=== PATIENT | female | born 1940 | race Caucasian/White ===

== ENCOUNTER 2025-04-21 17:43 | Inpatient (IN) ==
[2025-04-21 18:21] LABS: BASOPHILS % (AUTO) 0.2 %; HCT - HEMATOCRIT 31.7 % (37.0-47.0); HGB - HEMOGLOBIN 10.4 g/dL (12.0-16.0); LYMPHOCYTES # (AUTO) 0.8 10^3/uL (1.5-3.5); LYMPHOCYTES % (AUTO) 6.3 %; MEAN CORPUSCULAR HEMOGLOBIN 27.9 pg (27.0-31.0); MEAN CORPUSCULAR HGB CONC 32.8 g/dL (32.0-36.0); MEAN PLATELET VOLUME 8.4 fL (7.9-10.8); MONOCYTES # (AUTO) 0.5 10^3/uL (0.0-1.0); MONOCYTES % (AUTO) 3.8 %; NEUTROPHILS # (AUTO) 11.6 10^3/uL (1.5-6.6); NEUTROPHILS % (AUTO) 89.2 %; PLT - PLATELET COUNT 314 10^3/uL (130-450); RED BLOOD COUNT 3.73 10^6/uL (4.20-5.40); WHITE BLOOD COUNT 12.9 x10^3/uL (4.8-10.8)
[2025-04-21 18:34] LABS: ALBUMIN 3.9 g/dL (3.2-5.5); ALBUMIN/GLOBULIN RATIO 1.3 (1.0-2.2); ALKALINE PHOSPHATASE 94 IU/L (42-121); ALT ALANINE AMINOTRANSFERASE 17 IU/L (10-60); AST ASPARTATE AMINOTRANSFERASE 21 IU/L (10-42); BILIRUBIN,TOTAL 0.6 mg/dL (0.2-1.0); BUN - BLOOD UREA NITROGEN 21 mg/dL (6-20); CALCIUM 9.8 mg/dL (8.5-10.3); CARBON DIOXIDE - CO2 27 mmol/L (21-32); CHLORIDE 100 mmol/L (101-111); CK- CREATINE KINASE 357 IU/L (30-223); CREATININE 0.4 mg/dL (0.6-1.3); GFR - MDRD 152 (>89); GLUCOSE 148 mg/dL (74-104); SODIUM 137 mmol/L (135-145); TOTAL PROTEIN 6.9 g/dL (6.4-8.9)
[2025-04-21 18:35] LABS: LIPASE < 10 U/L (11-82)
--- NOTE | 2025-04-21 18:36 | ED Physician Documentation ---
History of Present Illness Stated complaint Stated Complaint: FALL/POSS UTI Chief complaint Chief Complaint: General History obtained from History obtained from: Patient Additonal information Additional information: 84-year-old female presents after a neighbor reportedly found her on the floor. The patient lives alone, and is not sure necessarily how she ended up on the floor. Is not clear whether this happened today or yesterday According to patient's daughter who lives in [place], the patient had a heating/cooling hearing aid repair technician at that house yesterday until around 3:30 in the afternoon and presumeably she was ok at that time. This morning when she called her mom multiple times, she did not answer, she subsequently called a neighbor who looked in the window and found the patient was on the floor but was unable to get inside the house so called 911. EMS found the patient on the floor, she had not soiled herself and they presumed that she had not been on the floor for that long, she is awake and alert but unable to get up on her own. Patient is not sure if she fell yesterday or today. The patient tells me that she feels a generally well, she denies any specific concerns other than some tenderness in the sacrum. She has had difficulty with mobility for a few months, particularly with raising her hands overhead or pulling herself up or getting up from a seated position. She has not been feeling unwell the last few days to her knowledge, has not had a fever to her knowledge, Denies any cough or URI type symptoms, no chest pain or difficulty breathing, no abdominal pain, no nausea vomiting diarrhea. She has not been on any new medication other than gabapentin which was started a couple months ago, and she was on prednisone for a period of time to help with her joint pain which did help her mobility quite a bit but she has titrated off that. She has also been followed by her primary doctor recently for anemia of unknown origin. Iva Coma Scale Assess Eye opening: Spontaneous Verbal response: Oriented Motor response: Obeys Commands Total score: 15 Meds/Allgy Home Medications Ambulatory Orders Medication Instructions Recorded Confirmed no.118-ferrous fumarate 1 tab PO DAILY #30 ta bs 03/02/25 03/29/25 29 mg-folic acid 1 mg chewable tablet cholecalciferol (vitamin D3) 25 25 mcg PO QDAY 5 05/05/25 mcg (1,000 unit) tablet cyanocobalamin (vitamin B-12) 250 250 mcg PO QDAY 08/1903/29/25 mcg tablet (Vitamin B-12) acetaminophen 500 mg capsule 500 mg PO QID PRN pain 03/29/25 gabapentin 100 mg capsule 100 mg PO QDAY #90 caps 02/2303/29/25 fzgcaste-bsnh-dhuo 8 mg-folic 400 1 tab PO QDAY 03/29/25 mcg-K 50 mcg-lutein 300 mcg tablet (Centrum Silver Women) dexamethasone 4 mg tablet 4 mg PO DAILY joint pain and 03/29/25 03/29/25 stiffness #10 tabs Allergies Allergies Allergy/AdvReac Type Severity Reaction Status Date / Time SEASONAL ALLERGIES Allergy Severe Unknown Uncoded 04/21/25 17:56 PFSH Active Problems All Active Problems (Updated 04/21/25 @ 22:02 by Rizwana Flores [facility]) Acute metabolic encephalopathy (Acute) Acute cystitis (Acute) Episode of altered cognition (Acute) Encounter to establish care with new provider (Acute) Iron deficiency anemia, unspecified (Acute) Counseling, unspecified (Acute) Other usp (current) drug therapy (Acute) Encounter for vaccination (Acute) Impacted cerumen, bilateral (Acute) Elevated erythrocyte sedimentation rate (Acute) Diffuse arthralgia (Acute) Severe anemia (Acute) Iron deficiency anemia (Acute) Anemia (Acute) Chest pain (Acute) Lives alone (Acute) Muscle weakness (Acute) Left hip pain (Acute) Abnormal weight loss (Acute) Cervical radicular pain (Acute) Left shoulder pain (Acute) Mobility impaired (Acute) Fatigue (Acute) Social History Social History Smoking Status: Never smoker Second hand tobacco smoke exposure: Yes Do you dip or chew tobacco?: No Do you vape?: No Living arrangement: At home Marital Status: Living Condition: Alone Relationship: Level: Independent Do you feel safe in your home environment?: Yes Suffered physical, verbal, emotional, or financial abuse?: No ETOH Use: None Substance Use: denies use POLST Patient has POLST: No Exam Exam Vital Signs: Vital Signs x48h Temp Pulse Resp BP Pulse Ox 04/21/25 21:00 94 140/65 H 95 04/21/25 19:56 36.8 C 88 16 150/90 H 97 04/21/25 17:48 36.7 C 90 20 156/69 H 96 Constitutional normal general appearance, no apparent distress, average body habitus, no limitations and alert HENMT normocephalic and head/scalp atraumatic Eyes PERRL and EOMs intact bilaterally Respiratory breath sounds equal bilaterally, normal respiratory effort, clear to auscultat ion bilaterally, no wheezes, no rales, no retractions and no use of accessory muscles Cardiovascular normal heart rate noted, regular rhythm noted, no murmur, peripheral pulses 2+ throughout and no edema Gastrointestinal abdomen normal to inspection, abdomen soft to palpation, nontender to palpation, nondistended and normoactive bowel sounds Extremities normal to inspection No obvious extremity bony injuries. She has reduced range of motion of both upper extremities that is chronic, arthritic changes to both hands,. Patient not able to get out of bed to chair, mobility. Neurology Awake and alert, oriented, speech is clear, moves all extremities, no focal sensory or motor deficits though has generalized weakness and chronic arthralgias of particular shoulders but also hip joint. Unable to assess gait due to to patient's limited mobility. Skin skin color normal and no wounds Redness on the sacrum Results Vitals Vitals: Vital Signs - 24 hr 04/21/25 17:48 04/21/25 19:56 04/21/25 21:00 Temperature 36.7 C 36.8 C Temperature Source Temporal Artery Scan Tympanic Pulse Rate 90 88 94 Respiratory Rate 20 16 Blood Pressure 156/69 H 150/90 H 140/65 H O2 Saturation 96 97 95 O2 Source Room air Room air Room air Pain Intensity 0 0 Oxygen O2 Source Room air Labs Labs: Laboratory Tests 04/21/25 04/21/25 04/21/25 18:15 19:45 21:26 WBC 12.9 H RBC 3.73 L Hgb 10.4 L Hct 31.7 L MCV 85.0 MCH 27.9 MCHC 32.8 RDW 20.0 H Plt Count 314 MPV 8.4 Neut # (Auto) 11.6 H Lymph # (Auto) 0.8 L [place] # (Auto) 0.5 Eos # (Auto) 0.0 Baso # (Auto) 0.0 Absolute Nucleated RBC 0.00 Nucleated RBC % 0.0 Sodium 137 Potassium 4.0 Chloride 100 L Carbon Dioxide 27 Anion Gap 10.0 BUN 21 H Creatinine 0.4 L Estimated GFR (MDRD) 152 Glucose 148 H Lactic Acid < 0.2 L Calcium 9.8 Total Bilirubin 0.6 AST 21 ALT 17 Alkaline Phosphatase 94 Total Creatine Kinase 357 H Total Protein 6.9 Albumin 3.9 Globulin 3.0 Albumin/Globulin Ratio 1.3 Lipase < 10 L Procalcitonin Immunoas 0.08 Urine Color YELLOW Urine Clarity SL. CLOUDY Urine pH 6.0 Ur Specific [place] >=1.030 H Urine Protein 100 H Urine Glucose (UA) NEGATIVE Urine Ketones >=80 H Urine Occult Blood TRACE-INTA Urine Nitrite NEGATIVE Urine Bilirubin NEGATIVE Urine Urobilinogen 0.2 (NORMAL) Ur Leukocyte Esterase SMALL H Urine RBC None Seen Urine WBC >25 H Urine WBC Clumps PRESENT Ur Squamous Epith Cells MANY Squamous H Urine Bacteria Few Ur Microscopic Review INDICATED Urine Culture Comments NOT INDICATED Urine Opiates Screen POSITIVE H Ur Buprenorphine Scrn NEGATIVE Ur Oxycodone Screen NEGATIVE Urine Methadone Screen NEGATIVE Ur Barbiturates Screen NEGATIVE Ur Tricyclics Screen NEGATIVE Ur Phencyclidine Scrn NEGATIVE Ur Amphetamine Screen NEGATIVE U Methamphetamines Scrn NEGATIVE U Benzodiazepines Scrn NEGATIVE Urine Cocaine Screen NEGATIVE U Cannabinoids Screen NEGATIVE Ur Drug Screen Comment CUTOFF CONC BELOW: Ethyl Alcohol < 10.0 Rads (name of study) CT head, CT abd/p: Relevant Findings:: Final report received PD Medical Decision Making ED course Complexity details: reviewed old records, reviewed results, re-evaluated patient, considered differential, d/w patient and d/w family ED course: This is a 84-year-old female who presents after being found down on the floor of her house today. She has no specific complaints other than decreased mobility and joint pain that has been going on for quite some time. Here, the patient is awake and alert, oriented though appears mildly confused. There are no focal bony injuries, and no focal neurodeficits other than mild confusion. There is concern for possible infection, dehydration, electrolyte abnormality, toxic encephalopathy, metabolic encephalopathy, stroke among other differentials. We obtained a head CT which is negative, CT abdomen pelvis noncontrast was also negative for acute findings. Labs notable fo for mild leukocytosis, stable anemia, stable renal function, mild elevation in CK, urinalysis suspicious of for possible infection. Patient was given a liter of fluid and 1 g of ceftriaxone. We then attempted to do a road test on the patient and she was not able to safely get out of bed or mobilize on her own or even with significant assistance. We therefore have recommended admission for this patient to treat UTI, and encephalopathy with poor mobility. Awaiting tele-hospitalist to return call. 2200: Talked w/ hospitalist Dr. Maguire who very kindly has accepted this patient to the hospitalist service. Discharge Plan Discharge Patient Disposition: [facility] DC/Xfer Condition: Good Clinical Impression: Mobility impaired, Acute metabolic encephalopathy Acute cystitis Qualifiers: Hematuria presence: without hematuria Qualified Code(s): N30.00 - Acute cys titis without hematuria Prescriptions: No Action cyanocobalamin (vitamin B-12) [Vitamin B-12] 250 mcg tablet 250 mcg PO QDAY cholecalciferol (vitamin D3) 25 mcg (1,000 unit) tablet 25 mcg PO QDAY [id number] acid 29 mg iron- 1 mg tablet,chewable 1 tab PO DAILY Qty: 30 1RF acetaminophen 500 mg capsule 500 mg PO QID PRN (Reason: pain) Centrum Silver Women 8 mg iron-400 mcg-50 mcg tablet 1 tab PO QDAY gabapentin 100 mg capsule 100 mg PO QDAY Qty: 90 2RF dexamethasone 4 mg tablet 4 mg PO DAILY Qty: 10 0RF Print Language: Ecuadorean
--- NOTE | 2025-04-21 19:12 | CT Report ---
PROCEDURE: CT Head WO INDICATIONS: found on floor TECHNIQUE: Noncontrast 4.5 mm thick angled axial sections acquired from the foramen magnum to the vertex. For radiation dose reduction, the following was used: automated exposure control, adjustment of mA and/or kV according to patient size. COMPARISON: None FINDINGS: Image quality: Excellent. CSF spaces: Basal cisterns are patent. No extra-axial fluid collections. The ventricles are symmetric in size and shape. Brain: No intracranial bleeds or masses. There is cerebral volume loss for age, with resultant ventricular and sulcal prominence. There are periventricular and deep white matter chronic small vessel ischemic changes. There is intracranial internal carotid artery atherosclerosis. Skull and face: Calvarium and visualized facial bones appear intact, without suspicious lesions. Sinuses: Visualized sinuses and mastoids are clear. IMPRESSION: 1. No acute intracranial pathology. 2. Age-related volume loss. Reviewed by: Tae Sloan MD on 04/21/2025 7:10 PM PDT Approved by: Tae Sloan MD on 04/21/2025 7:10 PM PDT Station ID: [id number]
--- NOTE | 2025-04-21 19:14 | CT Report ---
PROCEDURE: CT Abdomen/Pelvis WO INDICATIONS: fall, found on ground, sacral pain TECHNIQUE: A CT scan of the abdomen and pelvis was performed without the use of intravenous contrast. Images were recorded and evaluated at appropriate window settings. Reformats: coronal and sagittal. For radiation dose reduction, the following was used: automated exposure control, adjustment of mA and/or kV according to patient size. COMPARISON: None. FINDINGS: Image quality: Diagnostic. Lower chest: Dependent atelectasis in posterior aspect of bilateral lung bases are seen. Moderate to large hiatal hernia. Heart size is normal, no pericardial effusion.. Liver: No contour-deforming mass. Gallbladder: No radiopaque stones or wall thickening. Biliary tree: No intrahepatic or extrahepatic dilation, accounting for age. Spleen: No splenomegaly. Pancreas: No pancreatic ductal dilation. Adrenals: No adrenal nodule. Kidneys and ureters: No hydronephrosis. No contour-deforming mass. Stomach, bowel and peritoneum: No gastric or small bowel dilation. No abnormal wall thickening. No pathologic free fluid. Normal appendix. No peritoneal free air. No abscess collection. Lymph nodes: No central or retroperitoneal adenopathy. Vessels: No infrarenal aortic aneurysm. Reproductive organs: Unremarkable. Bladder: Urinary bladder is well distended. No bladder wall thickening.. No calcified bladder stones. Pelvic lymph nodes: No adenopathy by size criteria. Bones: No aggressive osseous abnormality. No acute pelvic fracture or dislocation. Pelvic ring is intact. Osteoarthritic changes throughout bony pelvis is seen. Other: No significant ventral or inguinal hernia. IMPRESSION: 1. No evidence of acute trauma in the abdomen or pelvis. 2. Osteoarthritic changes throughout bony pelvis. No acute pelvic fracture or dislocation. No acute vertebral body compression fracture. 3. Normal appendix. No obstruction abnormal bowel wall thickening. No free fluid or free air. 4. Moderate to large size hiatal hernia. Reviewed by: Tae Sloan MD on 04/21/2025 7:13 PM PDT Approved by: Tae Sloan MD on 04/21/2025 7:13 PM PDT Station ID: [id number]
[2025-04-21] MEDS: SODIUM CHLORIDE 0.9% 1,000 ML IV STA (19:38)
[2025-04-21 19:52] LABS: BILIRUBIN,URINE NEGATIVE (NEGATIVE); GLUCOSE, URINE (UA) NEGATIVE (NEGATIVE); KETONES,URINE (UA) >=80 mg/dL (NEGATIVE); LEUKOCYTE ESTERASE, URINE SMALL (NEGATIVE); NITRITE,URINE NEGATIVE (NEGATIVE); OCCULT BLOOD,URINE TRACE-INTA (NEGATIVE); PROTEIN,URINE 100 mg/dL (NEGATIVE); UROBILINOGEN,URINE 0.2 (NORMAL) E.U./dL (NORMAL)
[2025-04-21 19:53] LABS: CLARITY,URINE SL. CLOUDY (CLEAR)
[2025-04-21] MEDS ORDERED: cefTRIAXone 1 GM VIAL ONE (20:05)
[2025-04-21 20:06] LABS: BACTERIA,URINE Few /HPF (None Seen); RBC,URINE None Seen /HPF (0-5); SQUAMOUS EPITHELIAL CELL,UR MANY Squamous (<= Few); WBC CLUMPS,URINE PRESENT; WBC,URINE >25 /HPF (0-5)
[2025-04-21] MEDS: cefTRIAXone 1 GM in SODIUM CHLORIDE 0.9% MINIBAG 100 ML IV STA (20:10)
[2025-04-21 21:37] LABS: AMPHETAMINE SCREEN,URINE NEGATIVE (NEGATIVE); BARBITURATE SCREEN,UR NEGATIVE (NEGATIVE); BENZODIAZEPINES SCREEN, URINE NEGATIVE (NEGATIVE); BUPRENORPHINE SCREEN, URINE NEGATIVE (NEGATIVE); COCAINE SCREEN URINE NEGATIVE (NEGATIVE); METHADONE SCREEN, URINE NEGATIVE (NEGATIVE); METHAMPHETAMINES SCREEN, URINE NEGATIVE (NEGATIVE); OPIATE SCREEN, URINE POSITIVE (NEGATIVE); OXYCODONE SCREEN, URINE NEGATIVE (NEGATIVE); THC CANNABINOID SCREEN, URINE NEGATIVE (NEGATIVE); TRICYCLIC ANTIDEPRESSANT,URINE NEGATIVE (NEGATIVE)
--- NOTE | 2025-04-21 22:17 | HISTORY & PHYSICAL EXAMINATION ---
Chief Complaint Chief Complaint Chief Complaint: Fall and confusion History of Present Illness Admitted From Admitted From:: Home via EMS History Obtained From Records Reviewed: yes History obtained from: ED physician and records Exam Limitations: telemedicine, patient confusion History of Present Illness HPI Comment/Other: Mrs. Maria is an 84 yoF that presented from home for evaluation after being found down by her neighbor. patient lives alone and was last seen by an electrical technician instructor. Her daughter tried to contact her the day of presentation but was unable to reach her. neighbor saw her on the floor but was unable to get into the house, patient was unable to get up but was awake. EMS reported she was alert and followed commands but was unable to provide history. She did not have any evidence of trauma. She didn't have any focal neurologic deficits. UA was concerning for acute infection. She had elevated CK >300. Patient remained unstable on her feet and due living alone hospitalist was aske to admit for further monitoring. I performed this visit using real-time tele-health tools. Informed consent was obtained to complete this tele-health visit with the available modalities. At the time of this visit, patient was located at [facility] in the [facility], I was located in [place]. Review of Systems Status of ROS: 10 or more systems reviewed and unremarkable except as noted in history and below PFSH Active Problems All Active Problems (Updated 04/21/25 @ 22:02 by Rizwana Flores [facility]) Acute metabolic encephalopathy (Acute) Acute cystitis (Acute) Episode of altered cognition (Acute) Encounter to establish care with new provider (Acute) Iron deficiency anemia, unspecified (Acute) Counseling, unspecified (Acute) Other terminal gauger (current) drug therapy (Acute) Encounter for vaccination (Acute) Impacted cerumen, bilateral (Acute) Elevated erythrocyte sedimentation rate (Acute) Diffuse arthralgia (Acute) Severe anemia (Acute) Iron deficiency anemia (Acute) Anemia (Acute) Chest pain (Acute) Lives alone (Acute) Muscle weakness (Acute) Left hip pain (Acute) Abnormal weight loss (Acute) Cervical radicular pain (Acute) Left shoulder pain (Acute) Mobility impaired (Acute) Fatigue (Acute) Social History Social History Smoking Status: Never smoker Second hand tobacco smoke exposure: Yes Do you dip or chew tobacco?: No Do you vape?: No Living arrangement: At home Marital Status: Living Condition: Alone Relationship: Level: Independent Do you feel safe in your home environment?: Yes Suffered physical, verbal, emotional, or financial abuse?: No ETOH Use: None Substance Use: denies use POLST Patient has POLST: No Meds/Allgy Home Medications Ambulatory Orders Medication Instructions Recorded Confirmed no.118-ferrous fumarate 1 tab PO DAILY #30 ta bs 03/02/25 03/29/25 29 mg-folic acid 1 mg chewable tablet cholecalciferol (vitamin D3) 25 25 mcg PO QDAY 03/29/25 mcg (1,000 unit) tablet cyanocobalamin (vitamin B-12) 250 250 mcg PO QDAY 08/1903/29/25 mcg tablet (Vitamin B-12) acetaminophen 500 mg capsule 500 mg PO QID PRN pain 03/29/25 gabapentin 100 mg capsule 100 mg PO QDAY #90 caps 02/2303/29/25 qkesayon-ehau-qzpd 8 mg-folic 400 1 tab PO QDAY 03/29/25 mcg-K 50 mcg-lutein 300 mcg tablet (Centrum Silver Women) dexamethasone 4 mg tablet 4 mg PO DAILY joint pain and 03/29/25 03/29/25 stiffness #10 tabs Allergies Allergies Allergy/AdvReac Type Severity Reaction Status Date / Time SEASONAL ALLERGIES Allergy Severe Unknown Uncoded 04/21/25 17:56 Exam Exam Vital Signs: Vital Signs x48h Temp Pulse Resp BP Pulse Ox 04/21/25 21:00 94 140/65 H 95 04/21/25 19:56 36.8 C 88 16 150/90 H 97 04/21/25 17:48 36.7 C 90 20 156/69 H 96 Examination as recorded was obtained from reported information from patient and staff on site, or through peripheral observation Constitutional no apparent distress Eyes PERRL Cardiovascular normal heart rate noted Genitourinary no CVA tenderness Extremities normal to inspection and full ROM Neurology no focal motor deficit noted Psychiatry oriented x3 (confusion) and cooperative Conclusion/Plan Problem List (1) Acute metabolic encephalopathy: Plan: alert but mild confusion, no focal deficits - I reviewed CT head myself, no acute intracranial finding -UA positive for opiates and patient recently started gabapentin, will hold medication due to altered mental status -suspected underlying infection may be contributing -continue to monitor for improvement (2) Acute cystitis: Plan: UA concerning for acute infection, cultures pending -continue empiric antibotics with rocephin tailor base on culture results Qualifiers: Hematuria presence: without hematuria Qualified Code(s): N30.00 - Acute cystitis without hematuria (3) Mobility impaired: Plan: acute on chronic, progressing. undergoing workup outpatient, now with fall and inability to get up -elevated cK level noted -CT abdomen pelvis reviewed myself,no fractures noted -physical therapy consultation pending, case management consulted to assist with disposition (4) Iron deficiency anemia, unspecified: Plan: home medications reviewed -resume iron supplementation Qualifiers: Iron deficiency anemia type: unspecified iron deficiency Qualified Code(s): D50.9 - Iron deficiency anemia, unspecified Lab Results 04/21/25 18:15 04/21/25 18:15 Core Measures Anticipated LOS I expect patient to be DC'd or transferred within 96 hours.: Yes Telemedicine Consult Details Provider Location & Consult Time Telemedicine consultation conducted via videoconferencing?: Yes
[2025-04-21] MEDS ORDERED: ONDANSETRON ODT 4 MG TABLET TL PRN (22:44)
[2025-04-21] MEDS ORDERED: SODIUM CHLORIDE FLUSH 0.9% 10 ML SYRINGE IVP PRN (22:44)
[2025-04-21] MEDS: SODIUM CHLORIDE 0.9% 1,000 ML IV SCH (23:03)
[2025-04-22] MEDS: SODIUM CHLORIDE FLUSH 0.9% 10 ML SYRINGE IVP SCH (00:02)
[2025-04-22] MEDS: cefTRIAXone 1 GM VIAL IVP STA (00:02)
[2025-04-22] MEDS: ACETAMINOPHEN 325 MG TABLET PO PRN (00:17)
[2025-04-22 05:44] LABS: BASOPHILS % (AUTO) 0.4 %; EOSINOPHILS # (AUTO) 0.1 10^3/uL (0.0-0.7); EOSINOPHILS % (AUTO) 1.1 %; HGB - HEMOGLOBIN 8.8 g/dL (12.0-16.0); LYMPHOCYTES % (AUTO) 19.8 %; MEAN CORPUSCULAR HEMOGLOBIN 27.5 pg (27.0-31.0); MEAN CORPUSCULAR HGB CONC 31.4 g/dL (32.0-36.0); MEAN CORPUSCULAR VOLUME 87.5 fL (81.0-99.0); MONOCYTES # (AUTO) 0.6 10^3/uL (0.0-1.0); MONOCYTES % (AUTO) 5.5 %; NEUTROPHILS # (AUTO) 7.4 10^3/uL (1.5-6.6); NEUTROPHILS % (AUTO) 72.8 %; PLT - PLATELET COUNT 293 10^3/uL (130-450); RED CELL DISTRIBUTION WIDTH 20.4 % (12.0-15.0); WHITE BLOOD COUNT 10.2 x10^3/uL (4.8-10.8)
[2025-04-22 05:56] LABS: CALCIUM 8.6 mg/dL (8.5-10.3); CREATININE 0.4 mg/dL (0.6-1.3); POTASSIUM 3.5 mmol/L (3.5-4.5)
[2025-04-22] MEDS: PRENATAL VITAMIN TABLET PO SCH (08:35)
[2025-04-22] MEDS: dexAMETHasone 4 MG TABLET PO SCH (08:35)
--- NOTE | 2025-04-22 12:20 | PHARMACY PROGRESS NOTE ---
Best Possible Medication History Admit Date and Time: 04/21/252203 Home Medications Medication Instructions Recorded Confirmed Type no.118-ferrous fumarate 1 tab PO DAILY #30 ta bs 03/02/25 04/22/25 Rx 29 mg-folic acid 1 mg chewable tablet cholecalciferol (vitamin D3) 25 25 mcg PO DAILY 04/22/25 History mcg (1,000 unit) tablet cyanocobalamin (vitamin B-12) 250 250 mcg PO DAILY 08/1904/22/25 History mcg tablet (Vitamin B-12) acetaminophen 500 mg capsule 500 mg PO QID PRN pain 04/22/25 History zxgnckdx-szlc-ecqg 8 mg-folic 400 1 tab PO DAILY 03/0904/22/25 History mcg-K 50 mcg-lutein 300 mcg tablet (Centrum Silver Women) gabapentin 100 mg capsule 100 mg PO DAILY 04/22/25 History magnesium 200 mg tablet 200 mg PO DAILY 04/22/25 History Processed by: Pharmacy (Medication reconciliation completed by [employer]) Medications reviewed in ED?: No Medication History completed: Yes Patient Interview: Completed Secondary Source(s): Insurance records [facility] Statement: As the person ultimately responsible for medication therapy, providers are able to order a medication from an existing home medication list in [facility] via the "Reconcile Routine" prior to Confirmation of that medication by computer network support specialist. Such practice is discouraged except when the physician, in their clinical judgment, deems that a medical need exists for a medication without regard to previous use.
--- NOTE | 2025-04-22 13:18 | PROVIDER PROGRESS NOTE ---
Subjective Prog Note Date Prog Note Date: 04/22/25 Subjective Pt reports feeling: No change Current Medications Current Medications Current Medications: Current Medications Generic Name Dose Route Start Last Admin Trade Name Home PRN Reason Stop Dose Admin Acetaminophen 650 mg 04/21/25 22:44 04/22/25 08:35 Acetaminophen 325 Mg Tablet PO 650 mg Q4HR PRN Administration Pain 1 to 4, or Fever Ceftriaxone Sodium 1 gm 04/22/25 21:00 Ceftriaxone 1 Gm Vial IVP HS ARISTEO Dexamethasone 4 mg 04/22/25 09:00 04/22/25 08:35 Dexamethasone 4 Mg Tablet PO 4 mg DAILY ARISTEO Administration Sodium Chloride 1,000 mls @ 100 mls/hr 04/21/25 23:00 04/22/25 10:40 Normal Saline 0.9% IV 100 mls/hr .Q10H ARISTEO Administration Ondansetron HCl 4 mg 04/21/25 22:44 Ondansetron Odt 4 Mg Tablet TL Q6HR PRN Nausea / Vomiting Multivit/Folic Acid/Iron 1 tab 04/22/25 08:00 04/22/25 08:35 Vitamin Tablet PO 1 tab DAILYWM ARISTEO Administration Sodium Chloride 10 ml 04/21/25 22:44 Sodium Chloride Flush 0.9% 10 Ml Syringe IVP PRN PRN NEEDED PER PROVIDER ORDERS Sodium Chloride 10 ml 04/22/25 01:00 04/22/25 10:38 Sodium Chloride Flush 0.9% 10 Ml Syringe IVP 10 ml 0100,0900,1700 ARISTEO Administration Sterile Water 10 ml 04/22/25 09:00 04/22/25 00:02 Water For Injection,Sterile 10 Ml Vial MC 10 ml DAILY ARISTEO Administration Objective Vital Signs/Intake & Output Reviewed Vital Signs: Yes Vital Signs: Vital Signs x48h Temp Pulse Resp BP Pulse Ox 04/22/25 11:11 36.9 C 84 16 129/67 96 04/22/25 07:47 37.1 C 86 18 151/76 H 95 Intake & Output: Intake & Output 04/19/25 04/20/25 04/21/25 04/22/25 23:59 23:59 23:59 23:59 Intake Total 1100 / 1100 1360 / 1360 Output Total 10 Balance 1090 / 1090 1360 / 1360 Weight (kg) 53 kg Objective General Appearance: positive No acute distress and Alert Eyes Bilateral: positive Normal inspection ENT: positive ENT inspection nml Neck: positive Nml inspection Respiratory: positive Chest non-tender Cardiovascular: positive Regular rate & rhythm Abdomen: positive Non-tender Back: positive Other (Pain worse with palpation in the area of the lumbar/thoracic spine) Skin: positive Color nml Extremities: positive Non-tender Neurologic/Psychiatric: positive Oriented x3 (Intermittent confusion) Lab Results 04/22/25 05:22 04/22/25 05:22 Other Labs: Lab Results x24hrs 04/22/25 04/22/25 04/22/25 Range/Units 09:53 05:22 05:22 WBC 10.2 (4.8-10.8) x10^3/uL RBC 3.20 L (4.20-5.40) 10^6/uL Hgb 8.8 L (12.0-16.0) g/dL Hct 28.0 L (37.0-47.0) % MCV 87.5 (81.0-99.0) fL MCH 27.5 (27.0-31.0) pg MCHC 31.4 L (32.0-36.0) g/dL RDW 20.4 H (12.0-15.0) % Plt Count 293 (130-450) 10^3/uL MPV 9.0 (7.9-10.8) fL Neut # (Auto) 7.4 H (1.5-6.6) 10^3/uL Lymph # (Auto) 2.0 (1.5-3.5) 10^3/uL [place] # (Auto) 0.6 (0.0-1.0) 10^3/uL Eos # (Auto) 0.1 (0.0-0.7) 10^3/uL Baso # (Auto) 0.0 (0.0-0.1) 10^3/uL Absolute Nucleated RBC 0.00 x10^3/uL Nucleated RBC % 0.0 /100WBC RBC Morph Micro Appear 1+ ANISOCYTOSIS 1+ HYPOCHROMASIA (NORMAL) Sodium 137 (135-145) mmol/L Potassium 3.5 (3.5-4.5) mmol/L Chloride 107 (101-111) mmol/L Carbon Dioxide 24 (21-32) mmol/L Anion Gap 6.0 (6-13) BUN 17 (6-20) mg/dL Creatinine 0.4 L (0.6-1.3) mg/dL Estimated GFR (MDRD) 152 (>89) Glucose 103 (74-104) mg/dL Lactic Acid (0.5-2.2) mmol/L Calcium 8.6 (8.5-10.3) mg/dL Total Bilirubin (0.2-1.0) mg/dL AST (10-42) IU/L ALT (10-60) IU/L Alkaline Phosphatase (42-121) IU/L Total Creatine Kinase 229 H 216 (30-223) IU/L Total Protein (6.4-8.9) g/dL Albumin (3.2-5.5) g/dL Globulin (2.1-4.2) g/dL Albumin/Globulin Ratio (1.0-2.2) Lipase (11-82) U/L Procalcitonin Immunoas (<0.5) ng/mL Urine Color Urine Clarity (CLEAR) Urine pH (5.0-7.5) PH Ur Specific [place] (1.002-1.030) Urine Protein (NEGATIVE) mg/dL Urine Glucose (UA) (NEGATIVE) mg/dL Urine Ketones (NEGATIVE) mg/dL Urine Occult Blood (NEGATIVE) Urine Nitrite (NEGATIVE) Urine Bilirubin (NEGATIVE) Urine Urobilinogen (NORMAL) E.U./dL Ur Leukocyte Esterase (NEGATIVE) Urine RBC (0-5) /HPF Urine WBC (0-5) /HPF Urine WBC Clumps Ur Squamous Epith Cells (<= Few) Urine Bacteria (None Seen) /HPF Ur Microscopic Review Urine Culture Comments Urine Opiates Screen (NEGATIVE) Ur Buprenorphine Scrn (NEGATIVE) Ur Oxycodone Screen (NEGATIVE) Urine Methadone Screen (NEGATIVE) Ur Barbiturates Screen (NEGATIVE) Ur Tricyclics Screen (NEGATIVE) Ur Phencyclidine Scrn (NEGATIVE) Ur Amphetamine Screen (NEGATIVE) U Methamphetamines Scrn (NEGATIVE) U Benzodiazepines Scrn (NEGATIVE) Urine Cocaine Screen (NEGATIVE) U Cannabinoids Screen (NEGATIVE) Ur Drug Screen Comment Ethyl Alcohol mg/dL 04/21/25 04/21/25 04/21/25 Range/Units 21:26 19:45 18:15 WBC 12.9 H (4.8-10.8) x10^3/uL RBC 3.73 L (4.20-5.40) 10^6/uL Hgb 10.4 L (12.0-16.0) g/dL Hct 31.7 L (37.0-47.0) % MCV 85.0 (81.0-99.0) fL MCH 27.9 (27.0-31.0) pg MCHC 32.8 (32.0-36.0) g/dL RDW 20.0 H (12.0-15.0) % Plt Count 314 (130-450) 10^3/uL MPV 8.4 (7.9-10.8) fL Neut # (Auto) 11.6 H (1.5-6.6) 10^3/uL Lymph # (Auto) 0.8 L (1.5-3.5) 10^3/uL [place] # (Auto) 0.5 (0.0-1.0) 10^3/uL Eos # (Auto) 0.0 (0.0-0.7) 10^3/uL Baso # (Auto) 0.0 (0.0-0.1) 10^3/uL Absolute Nucleated RBC 0.00 x10^3/uL Nucleated RBC % 0.0 /100WBC RBC Morph Micro Appear (NORMAL) Sodium 137 (135-145) mmol/L Potassium 4.0 (3.5-4.5) mmol/L Chloride 100 L (101-111) mmol/L Carbon Dioxide 27 (21-32) mmol/L Anion Gap 10.0 (6-13) BUN 21 H (6-20) mg/dL Creatinine 0.4 L (0.6-1.3) mg/dL Estimated GFR (MDRD) 152 (>89) Glucose 148 H (74-104) mg/dL Lactic Acid < 0.2 L (0.5-2.2) mmol/L Calcium 9.8 (8.5-10.3) mg/dL Total Bilirubin 0.6 (0.2-1.0) mg/dL AST 21 (10-42) IU/L ALT 17 (10-60) IU/L Alkaline Phosphatase 94 (42-121) IU/L Total Creatine Kinase 332 H 357 H (30-223) IU/L Total Protein 6.9 (6.4-8.9) g/dL Albumin 3.9 (3.2-5.5) g/dL Globulin 3.0 (2.1-4.2) g/dL Albumin/Globulin Ratio 1.3 (1.0-2.2) Lipase < 10 L (11-82) U/L Procalcitonin Immunoas 0.08 (<0.5) ng/mL Urine Color YELLOW Urine Clarity SL. CLOUDY (CLEAR) Urine pH 6.0 (5.0-7.5) PH Ur Specific [place] >=1.030 H (1.002-1.030) Urine Protein 100 H (NEGATIVE) mg/dL Urine Glucose (UA) NEGATIVE (NEGATIVE) mg/dL Urine Ketones >=80 H (NEGATIVE) mg/dL Urine Occult Blood TRACE-INTA (NEGATIVE) Urine Nitrite NEGATIVE (NEGATIVE) Urine Bilirubin NEGATIVE (NEGATIVE) Urine Urobilinogen 0.2 (NORMAL) (NORMAL) E.U./dL Ur Leukocyte Esterase SMALL H (NEGATIVE) Urine RBC None Seen (0-5) /HPF Urine WBC >25 H (0-5) /HPF Urine WBC Clumps PRESENT Ur Squamous Epith Cells MANY Squamous H (<= Few) Urine Bacteria Few (None Seen) /HPF Ur Microscopic Review INDICATED Urine Culture Comments NOT INDICATED Urine Opiates Screen POSITIVE H (NEGATIVE) Ur Buprenorphine Scrn NEGATIVE (NEGATIVE) Ur Oxycodone Screen NEGATIVE (NEGATIVE) Urine Methadone Screen NEGATIVE (NEGATIVE) Ur Barbiturates Screen NEGATIVE (NEGATIVE) Ur Tricyclics Screen NEGATIVE (NEGATIVE) Ur Phencyclidine Scrn NEGATIVE (NEGATIVE) Ur Amphetamine Screen NEGATIVE (NEGATIVE) U Methamphetamines Scrn NEGATIVE (NEGATIVE) U Benzodiazepines Scrn NEGATIVE (NEGATIVE) Urine Cocaine Screen NEGATIVE (NEGATIVE) U Cannabinoids Screen NEGATIVE (NEGATIVE) Ur Drug Screen Comment CUTOFF CONC BELOW: Ethyl Alcohol < 10.0 mg/dL Assessment/Plan Problem List (1) Acute cystitis: Impression: Her acute UTI is thought to be the primary cause of her acute metabolic encephalopathy and has not resolved after day of IV antibiotics Continue Rocephin 1 g daily Her UA is already growing E. coli Qualifiers: Hematuria presence: without hematuria Qualified Code(s): N30.00 - Acute cystitis without hematuria (2) Rhabdomyolysis: Impression: Her total CK on presentation was 357. It is trended down to 229 Creatinine remains stable at 0.4 Continue NS at 100, likely will discontinue that tomorrow (3) Acute metabolic encephalopathy: Impression: Intermittently confused without focal neuro deficits CT head with no acute intracranial findings She is on gabapentin at home, holding for now Likely due to infection If her mentation does not improve to baseline by tomorrow, will consider MRI brain. MRI is currently down (4) Mobility impaired: Impression: She was found down for an unknown amount of time She reports pain in her back No bony abnormalities noted on CT abdomen/pelvis I have added on a CT of the T-spine PT/OT (5) Iron deficiency anemia, unspecified: Impression: Continue home iron Qualifiers: Iron deficiency anemia type: unspecified iron deficiency Qualified Code(s): D50.9 - Iron deficiency anemia, unspecified
--- NOTE | 2025-04-22 14:42 | CT Report ---
PROCEDURE: CT Thoracic Spine WO INDICATIONS: Back pain after being found down TECHNIQUE: Noncontrast images acquired through the region of interest in the thoracic spine. Sagittal and coronal reformats were then constructed. For radiation dose reduction, the following was used: automated exposure control, adjustment of mA and/or kV according to patient size. COMPARISON: None. FINDINGS: Image quality: Excellent. Bones: There is normal overall bony alignment. No acute vertebral body compression fractures. No suspicious sclerotic or lytic bony lesions. Central spinal canal is of normal overall caliber. Scattered multilevel degenerative changes are present. Soft tissues: No paravertebral masses or hematomas. Visualized posteromedial lungs demonstrate dependent change. Hiatal hernia. IMPRESSION: Multilevel degenerative changes. No visualized acute fracture or dislocation. Reviewed by: Kathy Palmer MD on 04/22/2025 2:41 PM PDT Approved by: Kathy Palmer MD on 04/22/2025 2:41 PM PDT Station ID: [id number]
--- NOTE | 2025-04-22 15:38 | OT Plan of Care ---
OT Plan of Care OT Plan of Care: Diagnosis Diagnosis UTI; fall Chief Complaint AMS; Fall Assessment Assessment Pt is an 84 y/o F adm on 04/21 s/p AMS with unwitnessed fall in home. Per chart pt down for unknown amount of time. Work up included head CT (-), CT abdomen pelvis noncontract (-), Labs notable for mild leukocytosis, stable anemia, stable renal function, mild elevation in CK, and UTI. Seen today for OT eval per MD. Met supine in bed, A&Ox3 to self , place, time and mostly situation however pt with decreased attention and anxious during assessment. Reports recent decline in mobility and cognition for which she has ceased driving. Decreased B shld ROM ~90deg flexion which appears to be chronic in nature. Performed (log roll) supine to sit MIN A, sit to stand, and lateral steps to HOB using RW MIN A -Pt with increased pain to lumbar/sacral spine region with mobility. Placed supine back to bed. Rec further imaging to rule out any acute fx prior to increased mobility. Currently MIN-MOD A ADLs with full set up and increased time. No acute neurological deficits noted per assessment . Overall presents with decreased endurance, activity tolerance and ADL status. Will benefit from cont OT services during acute stay. Rec d/c to SNF at this time. Goals - Activities of Daily Living Improve Upper Extremity Modified Independent Dressing to: Improve Lower Extremity Modified Independent Dressing to: Improve Grooming/Hygiene to: Modified Independent Improve Bathing to: Modified Independent Improve Toileting to: Modified Independent Plan Treatment Frequency 1x/day -Discharge Recommendations Discharge Location [facility] Facility Transport Needs at Discharge Wheelchair van
--- NOTE | 2025-04-22 15:46 | PT Plan of Care ---
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 Admitted with metabolic encephalopathy and cystitis. Lives indep and does not use an AD at baseline. Upon PT eval, pt supine in bed, agrees to participate. Requires minAx1 overall for transfers, unable to assess gait d/t pt reported back pain and no imaging s/p fall. Will assess during next session. Pt does not have any visible bruising or contusions but states she has moderate back pain and increased coccyx pain upon standing. Pt may benefit from skilled PT in acute setting once imaging is clear to restore PLOF. PT rec dc to SNF when medically clear. GOALS Improve supine to sit to:: Modified Independent Improve sit to stand to:: Contact Guard Improve pivot transfer ability to:: Contact Guard Improve sit to supine to:: Modified Independent Improve gait ability to:: Min A Advance Assistive Device to:: Front Wheeled Walker Increase distance walked to (in feet):: 50 PLAN Frequency: 1-2x/day Duration: Until goals are met DISCHARGE RECOMMENDATIONS [facility]charge [facility]: [facility] [place] Equipment Recommended: Front wheeled walker Transport Needs at Discharge: B.L.[facility] Other: BLS at this time d/t back pain, unable to sit unsupported. may progress to [facility]c van
[2025-04-22] MEDS ORDERED: WATER FOR INJECTION,STERILE 10 ML MC ONE (21:36)
[2025-04-22] MEDS: cefTRIAXone 1 GM VIAL IVP SCH (21:49)
[2025-04-22] MEDS: DOCUSATE SODIUM 250 MG CAPSULE PO SCH (21:50)
[2025-04-23 05:26] LABS: BASOPHILS % (AUTO) 0.1 %; EOSINOPHILS % (AUTO) 0.4 %; HCT - HEMATOCRIT 28.3 % (37.0-47.0); HGB - HEMOGLOBIN 8.8 g/dL (12.0-16.0); LYMPHOCYTES % (AUTO) 23.2 %; MEAN CORPUSCULAR HEMOGLOBIN 27.7 pg (27.0-31.0); MEAN CORPUSCULAR HGB CONC 31.1 g/dL (32.0-36.0); MEAN PLATELET VOLUME 8.8 fL (7.9-10.8); MONOCYTES # (AUTO) 0.5 10^3/uL (0.0-1.0); MONOCYTES % (AUTO) 5.3 %; NEUTROPHILS % (AUTO) 70.8 %; PLT - PLATELET COUNT 317 10^3/uL (130-450); RED BLOOD COUNT 3.18 10^6/uL (4.20-5.40); RED CELL DISTRIBUTION WIDTH 20.2 % (12.0-15.0); WHITE BLOOD COUNT 8.5 x10^3/uL (4.8-10.8)
[2025-04-23 05:51] LABS: CALCIUM 8.8 mg/dL (8.5-10.3); CREATININE 0.4 mg/dL (0.6-1.3); POTASSIUM 3.7 mmol/L (3.5-4.5)
[2025-04-23 06:41] LABS: PLATELET MORPHOLOGY NORMAL APPEARANCE (NORMAL)
[2025-04-23 06:42] LABS: PLATELET ESTIMATE, MANUAL NORMAL (130-450,000) (NORMAL)
[2025-04-23] MEDS: polyethylene glycoL 3350 17 GM PACKET PO SCH (08:17)
[2025-04-23] MEDS ORDERED: CALCIUM CARBONATE CHEW 500 MG TABLET PO PRN (11:35)
--- NOTE | 2025-04-23 13:04 | PT Plan of Care ---
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 Admitted with metabolic encephalopathy and cystitis. Lives indep and does not use an AD at baseline. Upon PT eval, pt supine in bed, agrees to participate. Requires minAx1 overall for transfers, unable to assess gait d/t pt reported back pain and no imaging s/p fall. Will assess during next session. Pt does not have any visible bruising or contusions but states she has moderate back pain and increased coccyx pain upon standing. Pt may benefit from skilled PT in acute setting once imaging is clear to restore PLOF. PT rec dc to SNF when medically clear. GOALS Improve supine to sit to:: Modified Independent Improve sit to stand to:: Contact Guard Improve pivot transfer ability to:: Contact Guard Improve sit to supine to:: Modified Independent Improve gait ability to:: Min A Advance Assistive Device to:: Front Wheeled Walker Increase distance walked to (in feet):: 50 PLAN Frequency: 1-2x/day Duration: Until goals are met DISCHARGE RECOMMENDATIONS [facility] Equipment Recommended: Front wheeled walker Transport Needs at Discharge: [facility] Other: BLS at this time d/t back pain, unable to sit unsupported. may progress to [facility] van
--- NOTE | 2025-04-23 13:37 | PROVIDER PROGRESS NOTE ---
Subjective Prog Note Date Prog Note Date: 04/23/25 Subjective Subjective: She says she is feeling better today. She knows the date and she knows where she is but remains with short-term memory deficit. I am not clear on what her baseline is. She repeats herself several times during my 10-minute visit regarding home health services that her daughter has set up. As well as describing to me her family situation with her daughter who currently lives in [place] but is visiting here. She complains of some back pain but has otherwise doing well. Current Medications Current Medications Current Medications: Current Medications Generic Name Dose Route Start Last Admin Trade Name Freq PRN Reason Stop Dose Admin Acetaminophen 650 mg 04/21/25 22:44 04/22/25 08:35 Acetaminophen 325 Mg Tablet PO 650 mg Q4HR PRN Administration Pain 1 to 4, or Fever Calcium Carbonate/Glycine 500 mg 04/23/25 11:35 Calcium Carbonate Chew 500 Mg Tablet PO Q4H PRN Heartburn Ceftriaxone Sodium 1 gm 04/22/25 21:00 04/22/25 21:49 Ceftriaxone 1 Gm Vial IVP 1 gm HS ARISTEO Administration Dexamethasone 4 mg 04/22/25 09:00 04/23/25 08:12 Dexamethasone 4 Mg Tablet PO 4 mg DAILY ARISTEO Administration Docusate Sodium 250 - 500 mg 04/22/25 21:00 04/23/25 08:24 Docusate Sodium 250 Mg Capsule PO Not Given DAILY ARISTEO Sodium Chloride 1,000 mls @ 100 mls/hr 04/21/25 23:00 04/23/25 08:22 Normal Saline 0.9% IV 100 mls/hr .Q10H ARISTEO Administration Multivitamins/Minerals 1 tab 04/24/25 08:00 Multivitamin W/Minerals Tablet PO DAILYWM ARISTEO Ondansetron HCl 4 mg 04/21/25 22:44 Ondansetron Odt 4 Mg Tablet TL Q6HR PRN Nausea / Vomiting Polyethylene Glycol 17 gm 04/23/25 09:00 04/23/25 08:17 Polyethylene Glycol 3350 17 Gm Packet PO 17 gm DAILY ARISTEO Administration Multivit/Folic Acid/Iron 1 tab 04/22/25 08:00 04/23/25 08:13 Vitamin Tablet PO 1 tab DAILYWM ARISTEO Administration Sodium Chloride 10 ml 04/21/25 22:44 Sodium Chloride Flush 0.9% 10 Ml Syringe IVP PRN PRN NEEDED PER PROVIDER ORDERS Sodium Chloride 10 ml 04/22/25 01:00 04/23/25 08:13 Sodium Chloride Flush 0.9% 10 Ml Syringe IVP 10 ml 0100,0900,1700 [facility] Administration Sterile Water 10 ml 04/23/25 09:53 Water For Injection,Sterile 10 Ml Vial 2100 [facility] Objective Vital Signs/Intake & Output Reviewed Vital Signs: Yes Vital Signs: Vital Signs x48h Temp Pulse Resp BP Pulse Ox 04/23/25 13:00 36.7 C 75 20 156/63 H 93 04/23/25 09:00 36.7 C 74 20 157/87 H 93 Intake & Output: Intake & Output 04/20/25 04/21/25 04/22/25 04/23/25 23:59 23:59 23:59 23:59 Intake Total 1100 / 1100 3240 / 3240 1120 / 1120 Output Total 10 / 10 Balance 1090 / 1090 3240 / 3240 1120 / 1120 Weight (kg) 53 kg Objective General Appearance: positive No acute distress and Alert Eyes Bilateral: positive Normal inspection ENT: positive ENT inspection nml Neck: positive Nml inspection Respiratory: positive Chest non-tender Cardiovascular: positive Regular rate & rhythm Abdomen: positive Non-tender Back: positive Other (Pain worse with palpation in the area of the lumbar/thoracic spine) Skin: positive Color nml Extremities: positive Non-tender Neurologic/Psychiatric: positive Oriented x3 (Intermittent confusion) Lab Results 04/23/25 05:20 04/23/25 05:20 Other Labs: Lab Results x24hrs 04/23/25 04/23/25 04/23/25 Range/Units 05:20 05:20 05:20 WBC (4.8-10.8) x10^3/uL RBC (4.20-5.40) 10^6/uL Hgb (12.0-16.0) g/dL Hct (37.0-47.0) % MCV (81.0-99.0) fL MCH (27.0-31.0) pg MCHC (32.0-36.0) g/dL RDW (12.0-15.0) % Plt Count (130-450) 10^3/uL MPV (7.9-10.8) fL Neut # (Auto) (1.5-6.6) 10^3/uL Lymph # (Auto) (1.5-3.5) 10^3/uL [place] # (Auto) (0.0-1.0) 10^3/uL Eos # (Auto) (0.0-0.7) 10^3/uL Baso # (Auto) (0.0-0.1) 10^3/uL Absolute Nucleated RBC x10^3/uL Nucleated RBC % /100WBC Platelet Estimate (NORMAL) Platelet Morphology (NORMAL) RBC Morph Micro Appear 2+ POIKILOCYTOSIS 1+ SCHISTOCYTES 3+ ANISOCYTOSIS (NORMAL) Sodium 138 (135-145) mmol/L Potassium 3.7 (3.5-4.5) mmol/L Chloride 108 (101-111) mmol/L Carbon Dioxide 22 (21-32) mmol/L Anion Gap 8.0 (6-13) BUN 15 (6-20) mg/dL Creatinine 0.4 L (0.6-1.3) mg/dL Estimated GFR (MDRD) 152 (>89) Glucose 96 (74-104) mg/dL Calcium 8.8 (8.5-10.3) mg/dL 04/23/25 05// Range/Units 05:20 05:20 WBC 8.5 (4.8-10.8) x10^3/uL RBC 3.18 L (4.20-5.40) 10^6/uL Hgb 8.8 L (12.0-16.0) g/dL Hct 28.3 L (37.0-47.0) % MCV 89.0 (81.0-99.0) fL MCH 27.7 (27.0-31.0) pg MCHC 31.1 L (32.0-36.0) g/dL RDW 20.2 H (12.0-15.0) % Plt Count 317 (130-450) 10^3/uL MPV 8.8 (7.9-10.8) fL Neut # (Auto) 6.0 (1.5-6.6) 10^3/uL Lymph # (Auto) 2.0 (1.5-3.5) 10^3/uL [place] # (Auto) 0.5 (0.0-1.0) 10^3/uL Eos # (Auto) 0.0 (0.0-0.7) 10^3/uL Baso # (Auto) 0.0 (0.0-0.1) 10^3/uL Absolute Nucleated RBC 0.00 x10^3/uL Nucleated RBC % 0.0 /100WBC Platelet Estimate NORMAL (130-450,000) (NORMAL) Platelet Morphology NORMAL APPEARANCE (NORMAL) RBC Morph Micro Appear 2+ OVALOCYTES 2+ HYPOCHROMASIA (NORMAL) Sodium (135-145) mmol/L Potassium (3.5-4.5) mmol/L Chloride (101-111) mmol/L Carbon Dioxide (21-32) mmol/L Anion Gap (6-13) BUN (6-20) mg/dL Creatinine (0.6-1.3) mg/dL Estimated GFR (MDRD) (>89) Glucose (74-104) mg/dL Calcium (8.5-10.3) mg/dL Assessment/Plan Problem List (1) Acute metabolic encephalopathy: Impression: Intermittently confused without focal neuro deficits CT head with no acute intracranial findings She is on gabapentin at home, holding for now Acute metabolic encephalopathy likely secondary to urinary tract infection. Patient demonstrates a short-term memory deficit during our interview today. [place] life [place]. [place] She has 1 living daughter who is 64 years old and lives in [place]. She repeats herself frequently with regards to details of her life recently. She has home health that was recently set up for assistance with errands and care of her home. I had a conversation with patient and daughter regarding her current life circumstances. There are concerns regarding her safety living alone. She has been for about 20 years. She lives alone and does not have daily check ins with anyone. She refuses to go to assisted living. Safety concerns were discussed with patient and daughter. PAtient is willing to to go SNF for rehab, but not willing to change her permanent living situation, even if she might come to some harm due to it. (2) Acute cystitis: Impression: Her acute UTI is thought to be the primary cause of her acute metabolic encephalopathy. her encephalopathy is improving, but she remains with memory deficits. I wonder if this is her baseline. Continue Rocephin 1 g daily Her urine culture was initially reported as E. coli. Final culture is resulted today and shown as lactobacillus. This is likely a contaminant, however this was from a cath specimen. She is day 3 of Rocephin. I will treat for total of 5 days. Qualifiers: Hematuria presence: without hematuria Qualified Code(s): N30.00 - Acute cystitis without hematuria (3) Rhabdomyolysis: Impression: Her total CK on presentation was 357. It is trended down to 229 Creatinine remains stable at 0.4 She is not showing any signs of renal failure. Her urine output has not been recorded. She is eating and drinking. I will discontinue her maintenance IV fluids at this time. (4) Mobility impaired: Impression: She was found down for an unknown amount of time She reports pain in her back No bony abnormalities noted on CT abdomen/pelvis CT of the T-spine shows no fracture. She is on dexamethasone 4 mg daily presumably for pain control. She is day 2 of this. I will discontinue this medication tomorrow. PT and OT are recommending shelter facility placement. Social work has consulted, patient and her daughter have chosen [facility]. She can be admitted to [facility] on 04/26/2025. She is medically clear for discharge today. (5) Iron deficiency anemia, unspecified: Impression: Continue home iron I have spent 42 minutes in the care of this patient today. This includes time [id number], review and ordering of diagnostic imaging and laboratory studies, monitoring the patient's signs symptoms, evaluation of medication effectiveness and patient's response to treatment. Qualifiers: Iron deficiency anemia type: unspecified iron deficiency Qualified Code(s): D50.9 - Iron deficiency anemia, unspecified
[2025-04-23] MEDS ORDERED: COD LIVER OIL/ZINC OXIDE 113 GM TUBE TOP PRN (21:35)
[2025-04-24] MEDS: MULTIVITAMIN W/MINERALS TABLET PO SCH (08:03)
--- NOTE | 2025-04-24 15:40 | PROVIDER PROGRESS NOTE ---
Subjective Prog Note Date Prog Note Date: 04/24/25 Subjective Subjective: She is pleasant today, and wants to go to SNF for rehab. She remains steadfast in her desire to return eventually to independent living. Current Medications Current Medications Current Medications: Current Medications Generic Name Dose Route Start Last Admin Trade Name [place] PRN Reason Stop Dose Admin Acetaminophen 650 mg 04/21/25 22:44 04/22/25 08:35 Acetaminophen 325 Mg Tablet PO 650 mg Q4HR PRN Administration Pain 1 to 4, or Fever Calcium Carbonate/Glycine 500 mg 04/23/25 11:35 Calcium Carbonate Chew 500 Mg Tablet PO Q4H PRN Heartburn Ceftriaxone Sodium 1 gm 04/22/25 21:00 04/23/25 20:19 Ceftriaxone 1 Gm Vial IVP 1 gm HS ARISTEO Administration Dexamethasone 4 mg 04/22/25 09:00 04/24/25 08:04 Dexamethasone 4 Mg Tablet PO 4 mg DAILY ARISTEO Administration Docusate Sodium 250 - 500 mg 04/22/25 21:00 04/24/25 08:03 Docusate Sodium 250 Mg Capsule PO 250 mg DAILY ARISTEO Administration Multivitamins/Minerals 1 tab 04/24/25 08:00 04/24/25 08:03 Multivitamin W/Minerals Tablet PO 1 tab DAILYWM ARISTEO Administration Ondansetron HCl 4 mg 04/21/25 22:44 Ondansetron Odt 4 Mg Tablet TL Q6HR PRN Nausea / Vomiting Polyethylene Glycol 17 gm 04/23/25 09:00 04/24/25 08:03 Polyethylene Glycol 3350 17 Gm Packet PO 17 gm DAILY ARISTEO Administration Sodium Chloride 10 ml 04/21/25 22:44 Sodium Chloride Flush 0.9% 10 Ml Syringe IVP PRN PRN NEEDED PER PROVIDER ORDERS Sodium Chloride 10 ml 04/22/25 01:00 04/24/25 08:04 Sodium Chloride Flush 0.9% 10 Ml Syringe IVP 10 ml 0100,0900,1700 ARISTEO Administration Sterile Water 10 ml 04/23/25 09:53 04/23/25 20:19 Water For Injection,Sterile 10 Ml Vial MC 10 ml 2100 ARISTEO Administration Zinc Oxide 113 gm 04/23/25 21:35 Cod Liver Oil/Zinc Oxide 113 Gm Tube TOP DAILY PRN Constipation Objective Vital Signs/Intake & Output Reviewed Vital Signs: Yes Vital Signs: Vital Signs x48h Temp Pulse Resp BP Pulse Ox 04/24/25 07:42 36.6 C 68 20 133/63 H 96 Intake & Output: Intake & Output 04/21/25 04/22/25 04/23/25 04/24/25 23:59 23:59 23:59 23:59 Intake Total 1100 / 1100 3240 / 3240 2735 / 2735 120 / 120 Output Total 10 Balance 1090 / 1090 3240 / 3240 2735 / 2735 120 / 120 Weight (kg) 53 kg Objective General Appearance: positive No acute distress and Alert Eyes Bilateral: positive Normal inspection ENT: positive ENT inspection nml Neck: positive Nml inspection Respiratory: positive Chest non-tender Cardiovascular: positive Regular rate & rhythm Abdomen: positive Non-tender Back: positive Other (Pain worse with palpation in the area of the lumbar/thoracic spine- able to move about in bed with some pain) Skin: positive Color nml Extremities: positive Non-tender Neurologic/Psychiatric: positive Oriented x3 (Intermittent confusion) Lab Results 04/23/25 05:20 04/23/25 05:20 Other Labs: Lab Results x24hrs 04/23/25 04/23/25 04/23/25 Range/Units 05:20 05:20 05:20 WBC (4.8-10.8) x10^3/uL RBC (4.20-5.40) 10^6/uL Hgb (12.0-16.0) g/dL Hct (37.0-47.0) % MCV (81.0-99.0) fL MCH (27.0-31.0) pg MCHC (32.0-36.0) g/dL RDW (12.0-15.0) % Plt Count (130-450) 10^3/uL MPV (7.9-10.8) fL Neut # (Auto) (1.5-6.6) 10^3/uL Lymph # (Auto) (1.5-3.5) 10^3/uL [place] # (Auto) (0.0-1.0) 10^3/uL Eos # (Auto) (0.0-0.7) 10^3/uL Baso # (Auto) (0.0-0.1) 10^3/uL Absolute Nucleated RBC x10^3/uL Nucleated RBC % /100WBC Platelet Estimate (NORMAL) Platelet Morphology (NORMAL) RBC Morph Micro Appear 2+ POIKILOCYTOSIS 1+ SCHISTOCYTES 3+ ANISOCYTOSIS (NORMAL) Sodium 138 (135-145) mmol/L Potassium 3.7 (3.5-4.5) mmol/L Chloride 108 (101-111) mmol/L Carbon Dioxide 22 (21-32) mmol/L Anion Gap 8.0 (6-13) BUN 15 (6-20) mg/dL Creatinine 0.4 L (0.6-1.3) mg/dL Estimated GFR (MDRD) 152 (>89) Glucose 96 (74-104) mg/dL Calcium 8.8 (8.5-10.3) mg/dL 04/23/25 04/23/25 Range/Units 05:20 05:20 WBC 8.5 (4.8-10.8) x10^3/uL RBC 3.18 L (4.20-5.40) 10^6/uL Hgb 8.8 L (12.0-16.0) g/dL Hct 28.3 L (37.0-47.0) % MCV 89.0 (81.0-99.0) fL MCH 27.7 (27.0-31.0) pg MCHC 31.1 L (32.0-36.0) g/dL RDW 20.2 H (12.0-15.0) % Plt Count 317 (130-450) 10^3/uL MPV 8.8 (7.9-10.8) fL Neut # (Auto) 6.0 (1.5-6.6) 10^3/uL Lymph # (Auto) 2.0 (1.5-3.5) 10^3/uL [place] # (Auto) 0.5 (0.0-1.0) 10^3/uL Eos # (Auto) 0.0 (0.0-0.7) 10^3/uL Baso # (Auto) 0.0 (0.0-0.1) 10^3/uL Absolute Nucleated RBC 0.00 x10^3/uL Nucleated RBC % 0.0 /100WBC Platelet Estimate NORMAL (130-450,000) (NORMAL) Platelet Morphology NORMAL APPEARANCE (NORMAL) RBC Morph Micro Appear 2+ OVALOCYTES 2+ HYPOCHROMASIA (NORMAL) Sodium (135-145) mmol/L Potassium (3.5-4.5) mmol/L Chloride (101-111) mmol/L Carbon Dioxide (21-32) mmol/L Anion Gap (6-13) BUN (6-20) mg/dL Creatinine (0.6-1.3) mg/dL Estimated GFR (MDRD) (>89) Glucose (74-104) mg/dL Calcium (8.5-10.3) mg/dL Assessment/Plan Problem List (1) Acute metabolic encephalopathy: Impression: Intermittently confused without focal neuro deficits CT head with no acute intracranial findings She is on gabapentin at home, holding for now Acute metabolic encephalopathy likely secondary to urinary tract infection. Patient demonstrates a short-term memory deficit Safety concerns were discussed with patient and daughter. PAtient is willing to to go SNF for rehab, but not willing to change her permanent living situation, even if she might come to some harm due to it. (2) Acute cystitis: Impression: Her acute UTI is thought to be the primary cause of her acute metabolic encephalopathy. her encephalopathy is improving, but she remains with memory deficits. I wonder if this is her baseline. Continue Rocephin 1 g daily. She has completed 4 days. Her urine culture was initially reported as E. coli. Final culture is resulted today and shown as lactobacillus. This is likely a contaminant, however this was from a cath specimen. She is day 4 of Rocephin. I will treat for total of 5 days. Qualifiers: Hematuria presence: without hematuria Qualified Code(s): N30.00 - Acute cystitis without hematuria (3) Rhabdomyolysis: Impression: no evidence of renal failure. She has been off IVF for 24 hours now She is not showing any signs of renal failure. Her urine output has not been recorded. She is eating and drinking. (4) Mobility impaired: Impression: She was found down for an unknown amount of time She reports pain in her back No bony abnormalities noted on CT abdomen/pelvis CT of the T-spine shows no fracture. She is on dexamethasone 4 mg daily presumably for pain control. She is day 3of this. I have discontinued it. PT and OT are recommending halfway facility placement. Social work has consulted, patient and her daughter have chosen [facility]. She can be admitted to [facility] on 04/26/2025. She is medically clear for discharge 04/23, remains medically clear (5) Iron deficiency anemia, unspecified: Impression: Continue home iron I have spent 28 minutes in the care of this patient today. This includes time [id number], review and ordering of diagnostic imaging and laboratory studies, monitoring the patient's signs symptoms, evaluation of medication effectiveness and patient's response to treatment. Qualifiers: Iron deficiency anemia type: unspecified iron deficiency Qualified Code(s): D50.9 - Iron deficiency anemia, unspecified
[2025-04-24] MEDS: COD LIVER OIL/ZINC OXIDE 113 GM TUBE TOP PRN (23:57)
[2025-04-25 05:29] LABS: BASOPHILS % (AUTO) 0.1 %; EOSINOPHILS # (AUTO) 0.2 10^3/uL (0.0-0.7); HCT - HEMATOCRIT 27.5 % (37.0-47.0); HGB - HEMOGLOBIN 8.7 g/dL (12.0-16.0); LYMPHOCYTES % (AUTO) 39.4 %; MEAN CORPUSCULAR HEMOGLOBIN 27.4 pg (27.0-31.0); MEAN CORPUSCULAR HGB CONC 31.6 g/dL (32.0-36.0); MEAN CORPUSCULAR VOLUME 86.8 fL (81.0-99.0); MEAN PLATELET VOLUME 9.1 fL (7.9-10.8); MONOCYTES # (AUTO) 0.5 10^3/uL (0.0-1.0); MONOCYTES % (AUTO) 6.6 %; NEUTROPHILS # (AUTO) 3.9 10^3/uL (1.5-6.6); NEUTROPHILS % (AUTO) 51.4 %; PLT - PLATELET COUNT 377 10^3/uL (130-450); RED BLOOD COUNT 3.17 10^6/uL (4.20-5.40); WHITE BLOOD COUNT 7.6 x10^3/uL (4.8-10.8)
[2025-04-25 06:00] LABS: CALCIUM 8.7 mg/dL (8.5-10.3); CREATININE 0.4 mg/dL (0.6-1.3); POTASSIUM 3.4 mmol/L (3.5-4.5)
--- NOTE | 2025-04-25 11:27 | PROVIDER PROGRESS NOTE ---
Subjective Prog Note Date Prog Note Date: 04/25/25 Subjective Subjective: Daughter is at bedside. Patient is ready for SNF tomorrow. Plan is for transport at noon. Patient understands that the ultimate goal is for her to get back to independent living. Current Medications Current Medications Current Medications: Current Medications Generic Name Dose Route Start Last Admin Trade Name Freq PRN Reason Stop Dose Admin Acetaminophen 650 mg 04/21/25 22:44 04/25/25 08:55 Acetaminophen 325 Mg Tablet PO 650 mg Q4HR PRN Administration Pain 1 to 4, or Fever Calcium Carbonate/Glycine 500 mg 04/23/25 11:35 Calcium Carbonate Chew 500 Mg Tablet PO Q4H PRN Heartburn Ceftriaxone Sodium 1 gm 04/22/25 21:00 04/24/25 20:21 Ceftriaxone 1 Gm Vial IVP 1 gm HS ARISTEO Administration Docusate Sodium 250 - 500 mg 04/22/25 21:00 04/25/25 07:37 Docusate Sodium 250 Mg Capsule PO Not Given DAILY ARISTEO Multivitamins/Minerals 1 tab 04/24/25 08:00 04/25/25 08:56 Multivitamin W/Minerals Tablet PO 1 tab DAILYWM ARISTEO Administration Ondansetron HCl 4 mg 04/21/25 22:44 Ondansetron Odt 4 Mg Tablet TL Q6HR PRN Nausea / Vomiting Polyethylene Glycol 17 gm 04/23/25 09:00 04/25/25 07:37 Polyethylene Glycol 3350 17 Gm Packet PO Not Given DAILY ARISTEO Sodium Chloride 10 ml 04/21/25 22:44 Sodium Chloride Flush 0.9% 10 Ml Syringe IVP PRN PRN NEEDED PER PROVIDER ORDERS Sodium Chloride 10 ml 04/22/25 01:00 04/25/25 08:56 Sodium Chloride Flush 0.9% 10 Ml Syringe IVP 10 ml 0100,0900,1700 ARISTEO Administration Sterile Water 10 ml 04/23/25 09:53 04/24/25 20:21 Water For Injection,Sterile 10 Ml Vial MC 10 ml 2100 ARISTEO Administration Zinc Oxide 113 gm 04/24/25 16:16 04/24/25 23:57 Cod Liver Oil/Zinc Oxide 113 Gm Tube TOP 1 applic PRN PRN Administration Skin Care Objective Vital Signs/Intake & Output Reviewed Vital Signs: Yes Vital Signs: Vital Signs x48h Temp Pulse Resp BP Pulse Ox 04/25/25 08:26 36.6 C 68 18 143/70 H 95 Intake & Output: Intake & Output 04/22/25 04/23/25 04/24/25 04/25/25 23:59 23:59 23:59 23:59 Intake Total 3240 / 3240 2735 / 2735 610 / 610 300 / 300 Balance 3240 / 3240 2735 / 2735 610 / 610 300 / 300 Objective General Appearance: positive No acute distress and Alert Eyes Bilateral: positive Normal inspection ENT: positive ENT inspection nml Neck: positive Nml inspection Respiratory: positive Chest non-tender Cardiovascular: positive Regular rate & rhythm Abdomen: positive Non-tender Back: positive Other (moving about in bed more easily without back pain. ) Skin: positive Color nml Extremities: positive Non-tender Neurologic/Psychiatric: positive Oriented x3 (Intermittent confusion) Lab Results 04/25/25 04:38 04/25/25 04:38 Other Labs: Lab Results x24hrs 04/25/25 Range/Units 04:38 WBC 7.6 (4.8-10.8) x10^3/uL RBC 3.17 L (4.20-5.40) 10^6/uL Hgb 8.7 L (12.0-16.0) g/dL Hct 27.5 L (37.0-47.0) % MCV 86.8 (81.0-99.0) fL MCH 27.4 (27.0-31.0) pg MCHC 31.6 L (32.0-36.0) g/dL RDW 20.0 H (12.0-15.0) % Plt Count 377 (130-450) 10^3/uL MPV 9.1 (7.9-10.8) fL Neut # (Auto) 3.9 (1.5-6.6) 10^3/uL Lymph # (Auto) 3.0 (1.5-3.5) 10^3/uL [place] # (Auto) 0.5 (0.0-1.0) 10^3/uL Eos # (Auto) 0.2 (0.0-0.7) 10^3/uL Baso # (Auto) 0.0 (0.0-0.1) 10^3/uL Absolute Nucleated RBC 0.00 x10^3/uL Nucleated RBC % 0.0 /100WBC Sodium 137 (135-145) mmol/L Potassium 3.4 L (3.5-4.5) mmol/L Chloride 104 (101-111) mmol/L Carbon Dioxide 28 (21-32) mmol/L Anion Gap 5.0 L (6-13) BUN 11 (6-20) mg/dL Creatinine 0.4 L (0.6-1.3) mg/dL Estimated GFR (MDRD) 152 (>89) Glucose 88 (74-104) mg/dL Calcium 8.7 (8.5-10.3) mg/dL Assessment/Plan Problem List (1) Acute metabolic encephalopathy: Impression: Intermittently confused without focal neuro deficits CT head with no acute intracranial findings She is on gabapentin at home, holding for now. She is doing well without it and I will discharge her without it. Acute metabolic encephalopathy likely secondary to urinary tract infection. Patient demonstrates a short-term memory deficit Safety concerns were discussed with patient and daughter. PAtient is willing to to go SNF for rehab, but not willing to change her permanent living situation, even if she might come to some harm due to it. Every day, I am able to reconfirm this with her and her daughter. (2) Acute cystitis: Impression: Her acute UTI is thought to be the primary cause of her acute metabolic encephalopathy. her encephalopathy is improving, but she remains with memory deficits. I wonder if this is her baseline. Continue Rocephin 1 g daily. She has completed 5 days. Her urine culture was initially reported as E. coli. Final culture is resulted and shown as lactobacillus. This is likely a contaminant, however this was from a cath specimen. I am stopping antibiotics. Qualifiers: Hematuria presence: without hematuria Qualified Code(s): N30.00 - Acute cystitis without hematuria (3) Rhabdomyolysis: Impression: no evidence of renal failure. Her urine output has not been recorded. She is eating and drinking. (4) Mobility impaired: Impression: She was found down for an unknown amount of time She reports pain in her back No bony abnormalities noted on CT abdomen/pelvis CT of the T-spine shows no fracture. She is on dexamethasone 4 mg daily presumably for pain control. She completed 3 days of dexamethasone, her pain is not worse off of this. her mobility seems to be improving. PT and OT are recommending nursing home facility placement. Social work has consulted, patient and her daughter have chosen [facility]. She can be admitted to [facility] on 04/26/2025. She is medically clear for discharge 04/23, remains medically clear (5) Iron deficiency anemia, unspecified: Impression: Continue home iron. Hgb 8.7 I have spent 26 minutes in the care of this patient today. This includes time [id number], review and ordering of diagnostic imaging and laboratory studies, monitoring the patient's signs symptoms, evaluation of medication effectiveness and patient's response to treatment. Qualifiers: Iron deficiency anemia type: unspecified iron deficiency Qualified Code(s): D50.9 - Iron deficiency anemia, unspecified
[2025-04-26 04:59] LABS: BASOPHILS % (AUTO) 0.5 %; EOSINOPHILS # (AUTO) 0.5 10^3/uL (0.0-0.7); EOSINOPHILS % (AUTO) 5.3 %; HCT - HEMATOCRIT 30.4 % (37.0-47.0); HGB - HEMOGLOBIN 9.9 g/dL (12.0-16.0); LYMPHOCYTES # (AUTO) 2.8 10^3/uL (1.5-3.5); LYMPHOCYTES % (AUTO) 32.8 %; MEAN CORPUSCULAR HEMOGLOBIN 28.1 pg (27.0-31.0); MEAN CORPUSCULAR HGB CONC 32.6 g/dL (32.0-36.0); MEAN CORPUSCULAR VOLUME 86.4 fL (81.0-99.0); MONOCYTES # (AUTO) 0.5 10^3/uL (0.0-1.0); MONOCYTES % (AUTO) 5.2 %; NEUTROPHILS # (AUTO) 4.8 10^3/uL (1.5-6.6); NEUTROPHILS % (AUTO) 55.5 %; PLT - PLATELET COUNT 450 10^3/uL (130-450); RED BLOOD COUNT 3.52 10^6/uL (4.20-5.40); RED CELL DISTRIBUTION WIDTH 20.5 % (12.0-15.0); WHITE BLOOD COUNT 8.7 x10^3/uL (4.8-10.8)
[2025-04-26 05:12] LABS: SLIDE REVIEW? Indicated
[2025-04-26 05:17] LABS: CREATININE 0.5 mg/dL (0.6-1.3); POTASSIUM 3.7 mmol/L (3.5-4.5)
[2025-04-26 05:35] LABS: PLATELET ESTIMATE, MANUAL NORMAL (130-450,000) (NORMAL); PLATELET MORPHOLOGY NORMAL APPEARANCE (NORMAL); RBC MORPHOLOGY (MULTIPLE) 1+ ANISOCYTOSIS (NORMAL); WBC MORPHOLOGY (MULTIPLE) NORMAL APPEARANCE (NORMAL)
[2025-04-26 08:10] VITALS: BP 155/77; TEMP 98.1; O2SAT 94
--- NOTE | 2025-04-26 09:59 | Discharge Summary ---
"Discharge Summary Admit Date: 04/21/25 Discharge Date: 04/26/25 Discharging Provider: Liliana Moses PA-C Primary Care Provider: JANN Guzman Code Status: Attempt Resuscitation DIAGNOSES Discharge Diagnoses with Status of Each Condition: Acute metabolic encephalopathy, resolved Acute cystitis treated and resolved Rhabdomyolysis, resolved Mobility impairment Iron deficiency anemia HPI History of Present Illness: Mrs. Maria is an 84 yoF that presented from home for evaluation after being found down by her neighbor. patient lives alone and was last seen by an echo technician. Her daughter tried to contact her the day of presentation but was unable to reach her. neighbor saw her on the floor but was unable to get into the house, patient was unable to get up but was awake. EMS reported she was alert and followed commands but was unable to provide history. She did not have any evidence of trauma. She didn't have any focal neurologic deficits. UA was concerning for acute infection. She had elevated CK >300. Patient remained unstable on her feet and due living alone hospitalist was aske to admit for further monitoring. I performed this visit using real-time tele-health tools. Informed consent was obtained to complete this tele-health visit with the available modalities. At the time of this visit, patient was located at [facility] in the [facility], I was located in [place]. CONSULTS | PROCEDURES Procedures: CT head: No acute intracranial pathology. Age-related volume loss CT abdomen pelvis no evidence of acute trauma in the abdomen or pelvis. Osteoarthritic changes throughout the bony pelvis without pelvic fracture or dislocation. No acute vertebral body compression fracture. Normal appendix. No obstruction or abnormal bowel wall thickening no free fluid or free air. Moderate to large size hiatal hernia Thoracic spine CT: Multilevel degenerative changes without acute fracture or dislocation HOSPITAL COURSE Hospital Course: Presented to the ED with confusion after falling and laying on the floor for an unknown period of time at home with rhabdo myelitis. Patient was treated for her urinary tract infection with IV antibiotics. Cultures ultimately grew lactobacillus, however this was a cath specimen so likely was a pathogen. Her CK trended down and her renal function remained stable and normal. She continues to have confusion and short-term memory deficit. She was on gabapentin at home we did hold this while she was inpatient and will not resume upon discharge. She does not have any focal neurologic findings. She was evaluated by physical therapy and Occupational Therapy and ultimately the patient did a great agreed to go to a senior care facility for rehabilitation. Her goal is to return to home in independent living. She has a history of iron deficiency anemia. We have continued her home oral iron therapy while inpatient. ALLERGIES Allergies Allergy/AdvReac Type Severity Reaction Status Date / Time SEASONAL ALLERGIES Allergy Severe Unknown Uncoded 04/21/25 17:56 MEDICATIONS Ambulatory Orders Medication Instructions Recorded Confirmed cholecalciferol (vitamin D3) 25 25 mcg PO DAILY 04/22/25 mcg (1,000 unit) tablet cyanocobalamin (vitamin B-12) 250 250 mcg PO DAILY 08/1904/22/25 mcg tablet (Vitamin B-12) magnesium 200 mg tablet 200 mg PO DAILY 04/22/25 acetaminophen 325 mg tablet 650 mg (2 x 325 mg) PO Q4H R PRN 04/26/25 Pain 1 to 4, or Fever #90 tabs calcium carbonate 500 mg (2.5 x 200 mg calcium (500 04/26/25 mg)) PO Q4H PRN Heartburn #90 tabs bstfmivlthri-[id number] 1 tab PO DAILYWM #30 tabs 0 04/26/25 fumarate 19 mg-folic acid 400 mcg tablet (Therapeutic-M) PHYSICAL EXAM AT DISCHARGE Vital Signs: Vital Signs x48h Temp Pulse Resp BP Pulse Ox 04/26/25 08:08 36.7 C 72 20 155/77 H 94 Physical Exam Other/Comments: General Appearance: positive No acute distress and Alert Eyes Bilateral: positive Normal inspection ENT: positive ENT inspection nml Neck: positive Nml inspection Respiratory: positive Chest non-tender Cardiovascular: positive Regular rate & rhythm Abdomen: positive Non-tender Back: positive Other (moving about in bed more easily without back pain. ) Skin: positive Color nml Extremities: positive Non-tender Neurologic/Psychiatric: positive Oriented x3 (Intermittent confusion) LABS 04/26/25 04:21 04/26/25 04:21 Discharge Plan Discharge Patient Disposition: 03 [facility] DC/Xfer Condition: Good Prescriptions: New acetaminophen 325 mg Tablet 650 mg PO Q4HR PRN (Reason: Pain 1 to 4, or Fever) Qty: 90 0RF calcium carbonate 200 mg calcium (500 mg) Tablet,Chewable 500 mg PO Q4H PRN (Reason: Heartburn) Qty: 90 0RF Therapeutic-M 19 mg iron- 400 mcg Tablet 1 tab PO DAILYWM Qty: 30 0RF Continued cyanocobalamin (vitamin B-12) [Vitamin B-12] 250 mcg tablet 250 mcg PO DAILY cholecalciferol (vitamin D3) 25 mcg (1,000 unit) tablet 25 mcg PO DAILY magnesium 200 mg tablet 200 mg PO DAILY Discontinued [id number] 29 mg iron- 1 mg tablet,chewable 1 tab PO DAILY Qty: 30 1RF gabapentin 100 mg capsule 100 mg PO DAILY acetaminophen 500 mg capsule 500 mg PO QID PRN (Reason: pain) Centrum Silver Women 8 mg iron-400 mcg-50 mcg tablet 1 tab PO DAILY Activity Restrictions: Activity as Tolerated Diet: Regular Health Concerns: you are an 84-year-old female who lives at home alone you came into the hospital because a neighbor saw you on the floor at home and you are unable to get up.. You have been on the floor for an unknown amount of time and were confused. When you came into the hospital was obvious that you had a urinary tract infection. You were treated for that. You have worked with physical and Occupational Therapy and they recommended that you go to a senior care facility for rehab to get stronger. Your ultimate goal is that you will live at home alone again. We have talked about the fact that living alone can be risky because there is not someone there to look out for you if things go wrong. However, you are insistent upon doing this and so we are doing everything we can do to help you be safe when you do get home again. Print Language: Portuguese Patient Instructions: Urinary Tract Infecs Women Stand Alone Forms: SNF Discharge"
== END 2025-04-26 12:00 | DRG 689 ==
LOC: ED 17:43 → MS3 17:43
PROVIDERS: ADMIT Hospitalist; ATTEND Hospitalist
DX: M53.3 Sacrococcygeal disorders, not elsewhere classified; Z79.899 Other long term (current) drug therapy; M54.9 Dorsalgia, unspecified; M62.82 Rhabdomyolysis; D50.9 Iron deficiency anemia, unspecified; W19.XXXA Unspecified fall, initial encounter; R41.3 Other amnesia; N30.00 Acute cystitis without hematuria; G93.41 Metabolic encephalopathy